=== PATIENT | female | born 1930 | race Caucasian/White ===

== ENCOUNTER → 2017-05-20 | Outpatient (CLI) | payer MEDICARE, BC ==
[~2017-05-20] MED LIST: 00186-0370-20 IH; ASPIRIN E.C. 8181 MG PO; ATIVAN 0.50.5 MG/TAB PO; CALCIUM1 CAP PO; CALCIUM500 MG PO; CEPHALEXIN500 M1 PO; CIPRO 500MG TA500 MG PO; CRANBERRY1 CAP PO; ELITE MAGNESIUM1 TAB PO; FISH OIL CONCEN1 SGL PO; FOSAMAX70 MG PO; HALCION 0.0.125 MG/T PO; LISINOPRIL5 MG PO; METFORMIN1000 MG PO; MULTIPLE VITAMI1 CAP PO; RT SPIRIVA18 MCG IH; SIMVASTATIN40 MG PO; VITAMIN D1000 IU PO
== END ==
LOC: MC.RAD 10:40
DX: Z12.31 Encounter for screening mammogram for malignant neoplasm of breast (principal)

== ENCOUNTER 2019-05-06 14:58 | Outpatient (CLI) | payer MEDICARE, BC ==
[~2019-05-06] VITALS: Ht 175.3 cm; Wt 39.9 kg
[~2019-05-06 14:58] MED LIST changes: +CALCIUM 600600 MG PO; -CALCIUM500 MG PO; +CRANBERRY 100 M1 SGL PO; -CRANBERRY1 CAP PO; -ELITE MAGNESIUM1 TAB PO; +FISH OIL 1000MG1 CAP PO; -FISH OIL CONCEN1 SGL PO; +GLUCOPHAGE1000 MG PO; -LISINOPRIL5 MG PO; +MAG-OX 400400 MG/TAB PO; -METFORMIN1000 MG PO; +PRINIVIL5 MG PO; -VITAMIN D1000 IU PO; +VITAMIN D31000 I1 PO; +ZOCOR 40MG40 MG PO
[2019-05-06 15:30] VITALS: BP 129/56; PULSE 82; TEMP 98.1
== END 2019-05-06 16:23 | disposition home or self-care (01) ==
LOC: EUO 14:58
DX: M81.0 Age-related osteoporosis without current pathological fracture (principal)
CPT/HCPCS: J0897

== ENCOUNTER 2019-08-26 10:00 | Outpatient (RCR) | payer MEDICARE, BC | END 2019-10-11 | disposition home or self-care (01) | LOC: MKS.ESL.PT | DX: M25.511 Pain in right shoulder (principal) ==

== ENCOUNTER 2019-11-19 10:54 | Outpatient (CLI) | payer MEDICARE, BC ==
[~2019-11-19] VITALS: Ht 175.3 cm; Wt 38.8 kg
[2019-11-19 11:13] VITALS: BP 90/43; PULSE 75; TEMP 97.6
== END 2019-11-19 16:14 | disposition home or self-care (01) ==
LOC: EUO 10:54
DX: M81.0 Age-related osteoporosis without current pathological fracture (principal)
CPT/HCPCS: J0897

== ENCOUNTER 2020-05-16 15:08 | Outpatient (CLI) | payer MEDICARE, BC ==
[~2020-05-16] VITALS: Ht 149.9 cm; Wt 36.5 kg
[2020-05-16 15:21] VITALS: BP 113/71; PULSE 64; TEMP 97.6
== END 2020-05-16 15:29 | disposition home or self-care (01) ==
LOC: EUO 15:08
DX: M81.0 Age-related osteoporosis without current pathological fracture (principal)
CPT/HCPCS: J0897

== ENCOUNTER 2020-11-27 14:59 | Outpatient (CLI) | payer MEDICARE, BC ==
[~2020-11-27] VITALS: Ht 149.9 cm; Wt 38.0 kg
[2020-11-27] MEDS ORDERED: STOOL SOFTENER100 M2 PO (15:28)
[2020-11-27] MEDS ORDERED: PROLIA60 MG/ML SQ (15:29)
[2020-11-27 15:37] VITALS: BP 145/77; PULSE 92; TEMP 98.5
== END 2020-11-27 15:46 | disposition home or self-care (01) ==
LOC: EUO 14:59
DX: M81.0 Age-related osteoporosis without current pathological fracture (principal)
CPT/HCPCS: J0897

== ENCOUNTER 2022-01-21 15:33 | Outpatient (CLI) | payer MEDICARE, BC ==
[~2022-01-21] VITALS: Ht 149.9 cm; Wt 34.8 kg
[~2022-01-21 15:33] MED LIST changes: +PROLIA60 MG/ML SQ; +STOOL SOFTENER100 M2 PO
[2022-01-21 16:00] VITALS: BP 148/71; PULSE 92; TEMP 98.6
== END 2022-01-21 17:43 | disposition home or self-care (01) ==
LOC: EUO 15:33
DX: M81.0 Age-related osteoporosis without current pathological fracture (principal)
CPT/HCPCS: J0897